=== PATIENT | female | born 2000 | race Caucasian/White ===

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

== ENCOUNTER 2021-03-25 10:25 | Emergency (ER) | payer BC ==
[~2021-03-25] VITALS: Ht 170.2 cm; Wt 95.3 kg
[2021-03-25 10:36] VITALS: BP 122/76
--- NOTE | 2021-03-25 10:51 | NUR ---
20 Y/O FEMALE C/O LEFT INNER LEG PAIN 08/05 DESCRIBES ACHING AND PRESSURE X2-3 DAYS. PT HAS SKIN ABSCESS PRESENT- RED AND SWOLLEN. NO DRAINAGE NOTED. PT STATES +N BUT NO VOMITING. DENIES FEVER/CHILLS. PT DENIES TAKING ANYHTING FOR PAIN. PT A/O X4 WITH EVEN AND UNLABORED RESPIRATIONS. I&D SET UP AT BEDSIDE DENIES PMH NKA
[2021-03-25] MEDS: LIDOCAINE MPF 1% 10 MG/ML VIAL INJ ONE ×2 (11:17→11:27)
--- NOTE | 2021-03-25 11:31 | NUR ---
DR MCCOLLUM AT BEDSIDE FOR PROCEDURE
[2021-03-25] MEDS ORDERED: SULF-58 PO (11:36)
[2021-03-25 11:47] VITALS: BP 122/76
--- NOTE | 2021-03-25 11:48 | NUR ---
DPatient discharged with v/s stable. Written and verbal after care instructions ABOUT INCISION AND DRAINAGE AND SKIN ABSCESS given and explained. Patient alert, oriented and verbalized understanding of instructions. Ambulatory with steady gait. All questions addressed prior to discharge. ID band removed. Patient advised to follow up with PMD. Rx of BACTRIM 400-80MG given. Patient educated on indication of medication including possible reaction and side effects. Opportunity to ask questions provided and answered.
== END 2021-03-25 11:48 | disposition home or self-care (01) ==
LOC: MED 10:25
DX: L02.416 Cutaneous abscess of left lower limb (principal); Z79.899 Other long term (current) drug therapy
CPT/HCPCS: 10060; 99283; J2001

== ENCOUNTER 2021-05-26 08:39 | Emergency (ER) | payer BC ==
[~2021-05-26] VITALS: Ht 170.2 cm; Wt 95.3 kg
[~2021-05-26 08:39] MED LIST: SULF-58 PO
[2021-05-26 08:50] VITALS: BP 139/73
--- NOTE | 2021-05-26 08:55 | NUR ---
Patient to lobby for open bed.
--- NOTE | 2021-05-26 09:00 | NUR ---
pt ambulated to bed 04.
--- NOTE | 2021-05-26 09:08 | NUR ---
20 y/o female c/o Abscess. Lump to back of neck x 1 week. Denies fever, chills, nausea, vomiting, headache. Denies any medications prior to arrival. States this has happened in the past in same area x 1 year ago. Pt states 6/10 Throbbing pain. Denies any discharge or trauma. Redness noted to area. MedHx: Denies NKA
[2021-05-26] MEDS ORDERED: LIDOCAINE MPF 1% 10 MG/ML VIAL INJ ONE (09:25)
--- NOTE | 2021-05-26 09:25 | NUR ---
DR MCCOLLUM AT BEDSIDE EXAMINING PT
--- NOTE | 2021-05-26 09:45 | NUR ---
I&D Procedure done by Dr MCCOLLUM. MINIMAL amt of bleeding noted. Wound packed with . DSD applied. Pt tolerated procedure. Wound care discussed w/ patient.
[2021-05-26] MEDS ORDERED: SULF-59 PO (09:53)
--- NOTE | 2021-05-26 10:12 | NUR ---
Patient discharged with v/s stable. Written and verbal after care instructions given and explained. Patient alert, oriented and verbalized understanding of instructions. Ambulatory with steady gait. All questions addressed prior to discharge. ID band removed. Patient advised to follow up with PMD. Rx of Bactrim DS given. Patient educated on indication of medication including possible reaction and side effects. Opportunity to ask questions provided and answered.
== END 2021-05-26 10:12 | disposition home or self-care (01) ==
LOC: MED 08:39
DX: L02.212 Cutaneous abscess of back [any part, except buttock and flank] (principal)
CPT/HCPCS: 10060; 99283; J2001

== ENCOUNTER 2021-11-08 02:12 | Emergency (ER) | payer BC ==
[~2021-11-08] VITALS: Ht 172.7 cm; Wt 95.3 kg
[~2021-11-08 02:12] MED LIST changes: +SULF-59 PO
[2021-11-08] MEDS ORDERED: IBUPROFEN 400 MG TAB PO ONE (02:35)
[2021-11-08] MEDS ORDERED: PANTOPRAZOLE 40 MG TABEC PO ONE (02:35)
[2021-11-08 02:44] VITALS: BP 144/93
--- NOTE | 2021-11-08 03:05 | NUR ---
PT BACK IN LOBBY.
--- NOTE | 2021-11-08 03:31 | NUR ---
PT TAKEN TO RAD
--- NOTE | 2021-11-08 03:35 | NUR ---
PT RETURN FROM RAD TO ER RENEEBY
[2021-11-08] MEDS ORDERED: PANT40EC PO (04:56)
[2021-11-08 05:50] VITALS: BP 144/93
[2021-11-08] MEDS ORDERED: IBUP-1842 PO (05:50)
--- NOTE | 2021-11-08 05:50 | NUR ---
Patient discharged with v/s stable. Written and verbal after care instructions given and explained. Patient alert, oriented and verbalized understanding of instructions. Ambulatory with steady gait. All questions addressed prior to discharge. ID band removed. Patient advised to follow up with PMD. Rx of IBUPROFEN AND PROTONIX given. Patient educated on indication of medication including possible reaction and side effects. Opportunity to ask questions provided and answered.
== END 2021-11-08 05:50 | disposition home or self-care (01) ==
LOC: MED 02:12
DX: R07.89 Other chest pain (principal); Z79.899 Other long term (current) drug therapy
CPT/HCPCS: 71045; 81002; 81025; 93005; 99285

== ENCOUNTER 2022-01-25 21:11 | Emergency (ER) | payer BC ==
[~2022-01-25] VITALS: Ht 170.2 cm; Wt 99.8 kg
[~2022-01-25 21:11] MED LIST changes: +IBUP-1842 PO; +PANT40EC PO
[2022-01-25 21:23] VITALS: BP 142/65
[2022-01-26 00:19] LABS: BILIRUBIN,URINE NEGATIVE (NEGATIVE); BLOOD, URINE NEGATIVE (NEGATIVE); COLOR,URINE YELLOW (YELLOW); LEUKOCYTE ESTERASE ,URINE 1+ (NEGATIVE); NITRITE, URINE NEGATIVE (NEGATIVE); UGLUCOSE NEGATIVE (NEGATIVE)
[2022-01-26 00:33] LABS: APPEARANCE,URINE HAZY (CLEAR)
[2022-01-26 00:39] LABS: RBC,URINE 0-5 /HPF (0-5)
[2022-01-26] MEDS ORDERED: CEPH-588 PO (01:59)
[2022-01-26 02:27] VITALS: BP 122/77
== END 2022-01-26 02:37 | disposition home or self-care (01) ==
LOC: MED 21:11
DX: O20.0 Threatened abortion (principal); Z3A.01 Less than 8 weeks gestation of pregnancy; Z79.899 Other long term (current) drug therapy
CPT/HCPCS: 36415; 76801; 81001; 81025; 84702; 86886; 86900; 86901; 87086; 99284; Q0092